=== PATIENT | female | born 1980 | race Hispanic/Latino ===

== ENCOUNTER 2020-09-18 13:47 | Inpatient (IN) | payer OTHER, SELFPAY ==
[2020-09-18] VITALS (12 sets, daily range): BP systolic 113–134; BP diastolic 62–76; PULSE 85–95; RESP 20–43; TEMP 36.3–36.8; O2SAT 93–97; BMI 33.7
--- NOTE | ~2020-09-18 | US_ITS ---
EXAMINATION: US pelvic complete DATE: 09/20/2020 13:55 INDICATION: Abnormal passage of blood from the pelvis. TECHNIQUE: Multiple transabdominal sonographic images of the pelvis were obtained. COMPARISON: None. FINDINGS: The uterus measures 7.8 x 3.4 x 3.0 cm. There is no free fluid in the pelvis. The endometrial complex measures 4 mm in thickness. The ovaries are not visualized. IMPRESSION: 1. Normal uterus. Reviewed, dictated and finalized at location A. ICIAN INVESTIGATOR IMPRESSION: 1. Normal uterus.
--- NOTE | ~2020-09-18 | XR_ITS ---
XR chest 1V portable DATE: 09/18/2020 14:37 INDICATION: Shortness of breath TECHNIQUE: Portable AP chest on September 18, 2020 at 1442 hours COMPARISON: None FINDINGS: There are patchy bilateral infiltrates involving the mid and particularly lower lung zones. No pleural effusion or pulmonary vascular congestion or pneumothorax. Heart size is likely within normal range given magnification associated with AP projection. There is degenerative spurring of the thoracic spine. IMPRESSION: Patchy bilateral predominantly lower lung infiltrates, most consistent with bilateral pne umonia Reviewed, dictated and finalized at location A. BLENDER IMPRESSION: Patchy bilateral predominantly lower lung infiltrates, most consist ent with bilateral pneumonia
--- NOTE | ~2020-09-18 | US_ITS ---
EXAMINATION: US renal BI DATE: 09/20/2020 13:57 INDICATION: Hematuria. TECHNIQUE: Multiple ultrasound grayscale images of the kidneys were obtained. COMPARISON: None. FINDINGS: The right kidney measures 10.9 x 4.4 x 5.1 cm. The left kidney measures 11.3 x 5.1 x 5.6 cm. The kidn eys demonstrate normal parenchymal echogenicity. There is no hydronephrosis. The bladder is normal. IMPRESSION: 1. Normal kidneys. No hydronephrosis. Reviewed, dictated and finalized at location A. LER
--- NOTE | 2020-09-18 13:48 | ECG_ITS ---
Measurements Intervals [place] Rate: 93 P: 24 IL: 150 QRS: 80 QRSD: 105 T: 70 QT: 361 QTc: 449 Interpretive Statements SINUS RHYTHM MINIMAL Q WAVES- INFERIOR LEADS NONSPECIFIC T-WAVE ABNORMALITY- ANTEROLAT/HIGH LAT LEADS BORDERLINE ECG Electronically Signed On 09-18-2020 14:02:29 COLD TYPE ARTIST by Chetan Mckeon D.O.
--- NOTE | 2020-09-18 14:13 | ED.SOB ---
HPI - SOB/Dyspnea General Chief Complaint: Shortness of Breath/Dyspnea Stated Complaint: sob/covid? Time Seen by Provider: 09/18/20 14:12 History of Present Illness HPI Narrative: 40 yo female brought in by EMS from home for SOB. She reports that she has been sick for about the past week. Symptoms include cough, chest congestion, SOB, myalgias and fatigue. She has multiple other sick contacts. Unknown if anyone has COVID-19. Related Data Allergies Allergy/AdvReac Type Severity Reaction Status Date / Time No Known Allergies Allergy Verified 09/18/20 13:51 Review of Systems Review of Systems: All systems reviewed & are unremarkable except as noted in HPI and below Constitutional: Constitutional: Reports fever(s) and Reports weakness Cardiovascular: Cardiovascular: Reports chest pain Respiratory: Respiratory: Reports chest congestion, Reports cough and Reports dyspnea Gastrointestinal: Gastrointestinal: Denies abdominal pain, Reports diarrhea, Denies nausea and Denies vomiting Genitourinary: Genitourinary: Denies dysuria Musculoskeletal: Musculoskeletal: Reports myalgias Neurologic: Denies dizziness and Reports weakness [facility] Past Medical History Medical History (Updated 09/18/20 @ 15:03 by Leo Ramirez MD) Healthy female adult Social History Social History Gender identity (if verbalized by the patient): Female Exam Const: General: no acute distress, alert and ill appearing Orientation/consciousness: patient oriented x3 HENMT: Head: normal to inspection Neck: Neck: normal visual inspection Chest: Chest palpation & inspection: normal inspection of the chest and no tenderness Resp: Effort & Inspection: tachypneic Auscultation: crackles bilateral in the lower lung jim Cardio: Rate: regular rate Rhythm: regular rhythm GI: Inspection: non-distended GI Palp: Yes Soft to palpation and No Tenderness to palpation present (GI) Skin: General skin exam: normal color Rashes: no rashes Neuro: General: patient oriented x3, moves all extremities and CN's II-XI intact bilaterally Speech: normal speech Gait exam (Neuro): Normal gait present Extrem: General: normal to inspection Course Vital Signs Vital signs: Vital Signs Temperature 36.3 C L 09/18/20 13:42 Pulse Rate 89 09/18/20 13:42 Respiratory Rate 93 H 09/18/20 13:42 Blood Pressure 134/63 09/18/20 13:42 Pulse Oximetry 93 09/18/20 13:42 Temperature 36.3 C L 09/18/20 13:42 Pulse Rate 86 09/18/20 14:31 Respiratory Rate 40 H 09/18/20 14:31 Blood Pressure 116/69 09/18/20 14:31 Pulse Oximetry 95 09/18/20 14:31 MDM - SOB/Dyspnea Differential Diagnosis Differential diagnosis: Likely acute exacerbation of chronic obstructive airways disease, community acquired pneumonia and other (COVID-19) Medical Records Attestation: I reviewed the patient's medical records. Lab Data Attestation: I reviewed the patient's lab results. Result diagrams: 09/18/20 14:01 09/18/20 14:01 Labs: Lab Results 09/18/20 09/18/20 09/18/20 Range/Units 14:01 14:01 14:01 WBC 6.0 (4.5-10.0) K/mm3 RBC 4.35 (4.2-5.4) M/mm3 Hgb 13.0 (12.0-15.0) g/dL Hct 39.2 (37.0-47.0) % MCV 90.1 (80-100) fl MCH 29.9 (26-34) pg MCHC 33.2 (32-36) g/dl RDW 12.4 (11.5-14.5) % Plt Count 141 L (150-375) k/mm3 MPV 10.4 (7.4-10.4) fl Immature Gran % (Auto) 1.0 H (0-0.5) % Neut % (Auto) 78.4 H (45.5-73.1) % Lymph % (Auto) 15.4 L (18.3-44.2) % [place] % (Auto) 4.7 (2.6-8.5) % Eos % (Auto) 0.3 (0-4.4) % Baso % (Auto) 0.2 (0.2-1.2) % Lymph # (Auto) 0.92 (0.9-3.2) K/mm3 [place] # (Auto) 0.3 (0.1-0.6) K/mm3 Eos # (Auto) 0.0 (0-0.3) K/mm3 Baso # (Auto) 0.0 (0.0-0.1) K/mm3 Abs Immat Gran (auto) 0.06 H (0.00-0.031) K/mm3 Absolute Neuts (auto) 4.7 (1.3-6.7) K/mm3 Absolute Nucleated RBC 0.0 (0.0-0.012) K/mm3 Nucleated RBC
[2020-09-18 14:25] LABS: Basophils Percent Auto 0.2 % (0.2-1.2); Eosinophils Percent Auto 0.3 % (0-4.4); Hematocrit 39.2 % (37.0-47.0); Immature Granulocyte Absolute 0.06 K/mm3 (0.00-0.031); Lymphocytes Absolute Auto 0.92 K/mm3 (0.9-3.2); Lymphocytes Percent Auto 15.4 % (18.3-44.2); Mean Corpuscular HGB Conc 33.2 g/dl (32-36); Mean Corpuscular Hemoglobin 29.9 pg (26-34); Mean Corpuscular Volume 90.1 fl (80-100); Mean Platelet Volume 10.4 fl (7.4-10.4); Monocytes Absolute Auto 0.3 K/mm3 (0.1-0.6); Monocytes Percent Auto 4.7 % (2.6-8.5); Neutrophils Absolute Auto 4.7 K/mm3 (1.3-6.7); Neutrophils Percent Auto 78.4 % (45.5-73.1); Platelet Count Result 141 k/mm3 (150-375); Red Blood Count 4.35 M/mm3 (4.2-5.4); Red Cell Distribution Width 12.4 % (11.5-14.5)
[2020-09-18 14:33] LABS: Hypochromasia 1+ (NORMAL); Platelet Estimate Adequate (Adequate)
[2020-09-18] MEDS: IPRATROPIUM BR 0.02% INH SOLN 0.5 MG/2.5 ML VIAL INHALATION (14:42)
[2020-09-18] MEDS: ALBUTEROL SULFATE NEB 2.5 MG/0.5 ML INH 5 MG INHALATION (14:42)
[2020-09-18 14:44] LABS: Anion Gap 9 mmol/L (8-16); Blood Urea Nitrogen 7 mg/dL (7-17); Calcium 8.1 mg/dL (8.4-10.2); Carbon Dioxide 26 mmol/L (22-30); Chloride 106 mmol/L (98-107); Estimated Glomerular Filt Rate > 60; Glucose 117 mg/dL (65-105); Potassium 3.5 mmol/L (3.4-5.0); Sodium 141 mmol/L (137-145)
[2020-09-18 15:55] LABS: Alanine Aminotransferase 40 U/L (4-35); Estimated Glomerular Filt Rate > 60
[2020-09-18] MEDS: REMDESIVIR 200 MG/NS 250 ML 200 MG/250 ML BAG 250 MG IVPB (16:50)
--- NOTE | 2020-09-18 17:30 | PC.NURSE ---
CALLED 3RD FLOOR TO GIVE PT REPORT. RN BUSY THIS TIME AND WILL CALL BACK TO RECEIVE REPORT.
--- NOTE | 2020-09-18 18:32 | ADMGEN ---
This patient, Humaira Reece, was admitted to 3 [facility] Surg Room 320-01 @ 1832. Patient/family oriented to hospital policies and general routines including ID bracelet, bed and alarms, visiting hours, pain management, procedures, bathroom and other care routines, personal items, smoking policy, room service/diet, and visiting hours. Information on how to activate the Rapid Response Team has been discussed. Patient/Family are encouraged to report perceived risks to care and to ask questions if they do not understand what they are told or what they should do.
--- NOTE | 2020-09-18 20:21 | PM.IMHP ---
H&P: HPI History of Present Illness Date/Time: 09/18/20 20:21 Chief Complaint: Cough, body aches and shortness of breath Narrative: Humaira Reece is a 40 year old obese female who presented to the ER from home via EMS with shortness of breath. The patient has been ill with nonproductive cough, subjective fevers and chills, myalgias fatigue and headache for the last 7 days. EMS reported that the found the patient with oxygen saturations of 80% on room air in the placed from 4 L nasal cannula with improvement in her oxygen saturations at 94%. Off of oxygen since presentation to the hospital and has not had any further hypoxia. Her shortness of breath is worse with activity. She is having left-sided chest pain when coughing. She has also had 4-5 diarrheal stools a day for the last 5-6 days. His also notice enrique hematuria for the last 4-5 days. She denies any dysuria, changes in urinary frequency or sensation of incomplete bladder emptying. She reports that her last menstrual cycle was about 3 months ago. She denies any pelvic pain or abdominal pain. She has not had any nausea or vomiting. She has had loss of sense of taste and smell. Her has been ill with similar symptoms but she does not think that he has been tested for COVID. She does not work outside the house for of her 6 children still live at home. They have all been ill with similar symptoms. She denies a history of snoring. She does not have a primary care physician and has not seen a doctor in many years. The patient is Setswana-speaking only and information was obtained via [employer] interpreting services. Review of Systems Review of Systems: Narrative: 12 systems were reviewed with pertinent positives and negatives per HPI. Except as documented in the HPI, all other systems were reviewed and are negative. [facility] Past Medical History Medical History (Updated 09/18/20 @ 22:22 by Marlee Meza DO) Obesity (BMI 30.0-34.9) Surgical History Surgical History (Updated 09/18/20 @ 22:15 by Marlee Meza DO) History of X3 Family History Family History Mother Healthy female Father Healthy male adult Social History Social History (Updated 09/18/20 @ 22:17 by Marlee Meza DO) Social History: The patient lives at home with her and 4 of her 6 children. She is a lifelong nonsmoker and does not drink alcohol or use illicit substances. She is a homemaker. Primary care physician: None Code status: Full code Smoking status: Never smoker Alcohol intake: never Substance use: never Gender identity (if verbalized by the patient): Female Spiritual care concerns: No Meds Home Medications and Allergies Home Medications Medication Instructions Recorded Confirmed Type No Home Medications 09/18/20 09/18/20 History Allergies Allergy/AdvReac Type Severity Reaction Status Date / Time No Known Allergies Allergy Verified 09/18/20 19:19 Vital Signs Vital Signs - 24 hr 09/18/20 13:42 09/18/20 13:49 09/18/20 14:31 Temperature 97.3 F L Pulse Rate 89 92 86 Respiratory Rate 43 H 40 H Blood Pressure 134/63 116/69 Pulse Oximetry 93 95 09/18/20 14:42 09/18/20 14:53 09/18/20 15:25 Temperature Pulse Rate 85 88 90 Respiratory Rate 22 H 22 H 28 H Blood Pressure 117/70 Pulse Oximetry 97 09/18/20 16:52 09/18/20 17:31 09/18/20 18:11 Temperature Pulse Rate 94 92 95 Respiratory Rate 20 24 H 26 H Blood Pressure 116/71 122/76 123/69 Pulse Oximetry 97 97 97 09/18/20 18:21 09/18/20 18:35 Temperature 98.3 F Pulse Rate 95 93 Respiratory Rate 20 22 H Blood Pressure 123/69 120/70 Pulse Oximetry 97 97 Exam Narrative: Exam Narrative: PHYSICAL EXAM: WEIGHT 75.8 BMI 33.8 General: Obese, mildly ill-appearing HEENT: Mucous membranes are tacky, no oral pharyngeal erythema, crowded posterior oropharynx, large
[2020-09-18] MEDS: ENOXAPARIN 80 MG/0.8 ML SYRINGE 75 MG SUB-Q (21:10)
[2020-09-18 22:59] LABS: SARS-CoV-2 RNA PCR Positive
[2020-09-19] VITALS (8 sets, daily range): BP systolic 101–121; BP diastolic 54–65; PULSE 86–105; RESP 20–22; TEMP 36–36.9; O2SAT 91–95
[2020-09-19] MEDS: ALBUTEROL SULFATE (*SP) INHALER 1 PUFF (02:01)
[2020-09-19 03:01] LABS: Add Urine Microscopic? YES; Appearance Urine Clear (Clear); Bacteria Urine Trace /hpf; Bilirubin Urine Negative (Negative); Blood Urine 2+ (Negative); Color Urine Yellow (Yellow); Glucose Urine UA 1+ mg/dL (Negative); Ketones Urine Negative (Negative); Leukocyte Esterase Ur Negative LEU/UL (Negative); Mucus Urine Rare /lpf; Nitrate Urine Negative (Negative); Protein Urine 1+ mg/dL (Negative); RBC Urine >75 /hpf (0-2); Specific Grav Ur 1.017 (1.001-1.035); Squamous Epithelial Cell Urine Occasional /hpf (Few); Urobilinogen Urine Negative mg/dL (<2.0)
[2020-09-19 07:46] LABS: Hematocrit 38.6 % (37.0-47.0); Hemoglobin 12.8 g/dL (12.0-15.0); Mean Corpuscular HGB Conc 33.2 g/dl (32-36); Mean Corpuscular Volume 90.6 fl (80-100); Mean Platelet Volume 10.2 fl (7.4-10.4); Platelet Count Result 191 k/mm3 (150-375); Red Blood Count 4.26 M/mm3 (4.2-5.4); Red Cell Distribution Width 12.3 % (11.5-14.5); White Blood Count 3.8 K/mm3 (4.5-10.0)
[2020-09-19] MEDS: ALBUTEROL SULFATE (*SP) AEROSOL 1 PUFF 6 PUFF INHALATION ×3 (07:53→21:33)
[2020-09-19 08:12] LABS: Alanine Aminotransferase 39 U/L (4-35); Albumin Level 3.8 g/dL (3.5-5.1); Alkaline Phosphatase 69 U/L (38-126); Anion Gap 10 mmol/L (8-16); Aspartate Amino Transferase 36 U/L (14-36); Bilirubin,Total 0.3 mg/dL (0.2-1.3); Blood Urea Nitrogen 11 mg/dL (7-17); Calcium 8.4 mg/dL (8.4-10.2); Carbon Dioxide 25 mmol/L (22-30); Chloride 109 mmol/L (98-107); Estimated Glomerular Filt Rate > 60; Glucose 145 mg/dL (65-105); Lactate Dehydrogenase 764 U/L (313-618); Potassium 3.9 mmol/L (3.4-5.0); Sodium 144 mmol/L (137-145)
[2020-09-19] MEDS: ENOXAPARIN 80 MG/0.8 ML SYRINGE 75 MG SUB-Q (10:10)
[2020-09-19] MEDS: DEXAMETHASONE SOD PHOS INJ 4 MG/ML VIAL 6 MG IV PUSH (10:10)
--- NOTE | 2020-09-19 14:28 | PM.IMPN ---
Progress Note: A&P Assessment and Plan (1) Pneumonia due to COVID-19 virus: Code(s): U07.1 - COVID-19; J12.82 - Pneumonia due to coronavirus disease 2019 Status: Acute Assessment and Plan: Patient hypoxic in the field but able to come off O2 here. CXR showing patchy bilateral predominantly lower lung infiltrates. Claudia tested positive for COVID-19 on 09/18/20. The patient had been started on Decadron and Remdesivir in the ER. However she hed not tested positive for COVID at that time and now she does not have an oxygen requirement. As such, she does not require Remdesivir use without an oxygen requirement. Decadron was continued which we will continue today as well. Continue contact isolation for COVID. Patient was started on empiric antibiotic therapy with azithromycin and Rocephin to cover for possible bacterial pneumonia but COVID (+) so will stop abx. Blood cultures are pending. Continue albuterol inhalers. Add antitussive medications. Tylenol for fever/ARROYO. (2) Hematuria: Qualifiers: Hematuria type: gross Qualified Code(s): R31.0 - Gross hematuria Code(s): R31.9 - Hematuria, unspecified Status: Acute Assessment and Plan: The patient reports gross hematuria. However that is been 3 months since she has had a menstrual cycle and menstrual bleeding is also possibility. UA showing 2+ blood and >75 RBCs. Will check test. Consider CT scan to assess for stones. (3) DVT prophylaxis: Code(s): Z29.9 - Encounter for prophylactic measures, unspecified Status: Acute Assessment and Plan: Lovenox for DVT prophylaxis. Will decrease dose since she maybe having hematuria. Subjective Date/time seen: 09/19/20 14:28 Interval history: Date of service 09/19 40yo female here for cough and fever and found to have COVID. She was hypoxic by EMS. 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 Still with cough. Has ARROYO made worse with cough. +CLARKE and cough when walking to the BR. Mild pleuritic CP. +Diarrhea. no n/v. Exam Narrative: Exam Narrative: AF 97.8 121/64 99 20 93% RA Gen - NARD Chest - CTA bilaterally, nml RR CV - RRR S1/S2; rakesh showing no significant dysrhythmias Abd - Soft, NT/ND, Positive BS Ext - No pedal edema Neuro - Alert and oriented. Nonfocal exam. Psych - Nml mood and affect Skin - Warm and dry; acanthosis nigricans noted neck area Objective Data Vital Signs Vital Signs: Vital Signs - 24 hr 09/18/20 14:31 09/18/20 14:42 09/18/20 14:53 Temperature Pulse Rate 86 85 88 Respiratory Rate 40 H 22 H 22 H Blood Pressure 116/69 Pulse Oximetry 95 09/18/20 15:25 09/18/20 16:52 09/18/20 17:31 Temperature Pulse Rate 90 94 92 Respiratory Rate 28 H 20 24 H Blood Pressure 117/70 116/71 122/76 Pulse Oximetry 97 97 97 09/18/20 18:11 09/18/20 18:21 09/18/20 18:35 Temperature 98.3 F Pulse Rate 95 95 93 Respiratory Rate 26 H 20 22 H Blood Pressure 123/69 123/69 120/70 Pulse Oximetry 97 97 97 09/18/20 20:00 09/19/20 00:00 09/19/20 02:07 Temperature 98.1 F 96.8 F L Pulse Rate 89 88 Respiratory Rate 20 20 Blood Pressure 113/62 111/65 Pulse Oximetry 97 95 95 09/19/20 04:00 09/19/20 08:00 09/19/20 08:02 Temperature 98.3 F 97.6 F Pulse Rate 92 105 H Respiratory Rate 20 22 H Blood Pressure 101/54 L 116/60 Pulse Oximetry 92 91 91 09/19/20 12:00 Temperature Pulse Rate 99 Respiratory Rate Blood Pressure Pulse Oximetry Intake/Output Intake/Output: Intake & Output 09/16/20 09/17/20 09/18/20 09/19/20 23:59 23:59 23:59 23:59 Intake Total 670 1060 Output Total 900 Balance 670 160 Meds/Results Medications: Active Medications Generic Name Dose Route Start Last Admin Trade Name Freq PRN Reason Stop Dose Admin Albuterol 6 puff 09/19/20 02:00 09/19/20 14:00 Albuterol Sulfate (*Sp) Aerosol 1 Puff INHALATION 6
[2020-09-19] MEDS: BENZONATATE 100 MG CAPSULE PO (16:21)
[2020-09-19] MEDS: ACETAMINOPHEN 325 MG TABLET 650 MG PO (17:04)
[2020-09-19] MEDS: guaiFENesin 12 HR 600 MG TABCR PO (21:34)
[2020-09-19] MEDS: ENOXAPARIN 40 MG/0.4 ML SYRINGE SUB-Q (21:35)
[2020-09-20] VITALS: BP 113/60; PULSE 81; PULSE 93; RESP 20; TEMP 35.9; O2SAT 93
[2020-09-20] MEDS: ALBUTEROL SULFATE (*SP) AEROSOL 1 PUFF 6 PUFF INHALATION ×2 (02:21→09:55)
[2020-09-20 04:00] VITALS: BP 113/61; PULSE 76; PULSE 82; RESP 20; TEMP 36.2; O2SAT 94
[2020-09-20 07:51] LABS: Alanine Aminotransferase 35 U/L (4-35); Estimated Glomerular Filt Rate > 60
[2020-09-20 08:00] VITALS: BP 106/59; PULSE 72; PULSE 75; RESP 16; TEMP 36.7; O2SAT 95
[2020-09-20 08:39] LABS: Beta HCG Quantitative < 2.39 mIU/ML
[2020-09-20] MEDS: ENOXAPARIN 40 MG/0.4 ML SYRINGE SUB-Q (09:54)
[2020-09-20] MEDS: DEXAMETHASONE SOD PHOS INJ 4 MG/ML VIAL 6 MG IV PUSH (09:54)
[2020-09-20] MEDS: guaiFENesin 12 HR 600 MG TABCR PO (09:55)
[2020-09-20] MEDS: BENZONATATE 100 MG CAPSULE PO (09:55)
[2020-09-20 12:00] VITALS: BP 109/63; PULSE 62; PULSE 75; RESP 16; TEMP 36.7; O2SAT 97
--- NOTE | 2020-09-20 15:25 | PM.DS ---
DS: Admitting Diagnosis Admitting Diagnosis Admitting Diagnosis: fever and cough DS: Discharge Diagnosis Discharge Diagnosis (1) Pneumonia due to COVID-19 virus: Code(s): U07.1 - COVID-19; J12.82 - Pneumonia due to coronavirus disease 2018 Status: Acute (2) Hematuria: Qualifiers: Hematuria type: gross Qualified Code(s): R31.0 - Gross hematuria Code(s): R31.9 - Hematuria, unspecified Status: Acute DS: Summary Hospital Course Reason for hospitalization: 40yo female here for cough and fever and found to have COVID. Please see H&P for details. Hospital Course: Patient hypoxic in the field but able to come off O2 here. CXR showing patchy bilateral predominantly lower lung infiltrates. Patient tested positive for COVID-19 on 09/18/20. The patient had been started on Decadron and Remdesivir in the ER. However she no longer has an oxygen requirement. As such, she does not require Remdesivir use. Decadron was continued ans her O2 requirement was closely monitored but she remained on room air. As such, no further Decadron required. We continued contact isolation for COVID. Patient was started on empiric antibiotic therapy with azithromycin and Rocephin to cover for possible bacterial pneumonia but COVID (+) so we stopped abx. Blood cultures are no growth. We continued symptomatic care. The patient reports gross hematuria; she denies this is menses. However that is been 3 months since she has had a menstrual cycle and menstrual bleeding is also possibility. UA showing 2+ blood and >75 RBCs. test negative. Exam showing no obvious blood from the vagina and no blood at the meatus. She is having blood leaking when she walks. Pelvic US showing endometrial complex measures 4mm consistent with menses. No pain to suggest nephrolithiasis. Renal US showing normal kidneys and bladder. She had dark blood noted in her underwear. She did well. Home today. Instructions provided to her verbally in Polish. Status at Discharge Cognitive/behavioral status at discharge: Stable Time Spent with Patient Time attestation: Total time spent providing and/or coordinating discharge services:36 minutes Time spent: Greater than 30 minutes Specific discharge activities: Patient Education Exam Narrative: Exam Narrative: AF 98.0 109/63 75 16 97% RA Gen - NARD Chest - CTA bilaterally, nml RR CV - RRR S1/S2 Abd - Soft, NT/ND, Positive BS - no obvious vaginal bleeding. Vaginal mucosa dark pink. No blood from the meatus. Ext - No pedal edema Neuro - Alert and oriented. Nonfocal exam. Psych - Nml mood and affect Skin - Warm and dry; acanthosis nigricans noted neck area DS: Data Data Completed and Pending Labs on day of discharge: Labs from last 24 hours 09/20/20 09/20/20 07:09 07:02 Creatinine 0.30 L Estim Creat Clear Calc Not Reportable Estimated GFR > 60 ALT 35 Beta HCG, Quant < 2.39 Preliminary micro results at discharge 09/18/20 14:01 Blood Culture - Preliminary Blood 09/18/20 14:08 Blood Culture - Preliminary Blood Discharge Plan Discharge Attending physician on discharge: Tien Simmons Consulting providers: Alex Salazar Discharging Clinician: Tien Simmons Anticipated Discharge Date/Time: 09/20/20 15:39 Patient Disposition: Home, Self-Care Activity: as tolerated Diet: heart healthy Discharge Instructions: PLEASE PROVIDE DISCHARGE INSTRUCTIONS IN [place] Please avoid large gathering, wear face coverings in public and practice social distance. You must stay isolated for 10 days. You can stop isolating on 09/28/20 as long as no fevers. Try to avoid being around family members until you are off isolation. Clean surfaces frequently with disinfectant. Contact your doctor or come to the Emergency Room if you have increasing shortness of breath, fever or other worrisome symptoms. Follow-up with your doctor in 1-2 week
[2020-09-20] MEDS: ACETAMINOPHEN 325 MG TABLET 650 MG PO (16:39)
== END 2020-09-20 17:15 | disposition home or self-care (01) | DRG 137 ==
LOC: ANHED 15:26 → ANH3MEDSUR 09-20 15:50
PROVIDERS: Internal Medicine; Admitting Provider Internal Medicine; Emergency Provider Emergency Medicine; Visit Provider Internal Medicine
DX: U07.1 COVID-19 (principal); J12.82 Pneumonia due to coronavirus disease 2019; R31.0 Gross hematuria; E66.9 Obesity, unspecified; Z68.33 Body mass index [BMI] 33.0-33.9, adult
CPT/HCPCS: 36415; 71045; 76775; 76856; 80048; 80053; 81001; 82565; 82728; 83605; 83615; 84460; 84702; 85025; 85027; 85380; 86140; 87040; 93005; 94640; 99285; A9270; C9803; J0456; J0696; J1100; J1650; U0003; U0005